=== PATIENT | female | born 1985 | race Caucasian/White ===

== ENCOUNTER 2017-10-11 00:39 | Emergency (ER) | payer MEDICAID ==
[~2017-10-11] VITALS: Ht 172.7 cm; Wt 88.5 kg
[2017-10-11 00:50] VITALS: BP 120/73
--- NOTE | 2017-10-11 01:00 | PHYS DOC ---
Past Medical History Past Medical History: Anxiety, Asthma, Bipolar Past Surgical History: , Tubal ligation Smoking: Cigarettes, 1 Pack Per Day Alcohol Use: None Drug Use: None Adult General Chief Complaint Chief Complaint: SHORTNESS OF BREATH HPI HPI Patient is a 32-year-old female who has a past history of asthma, and unfortunately Lizzette tobacco abuse, who presents to the emergency department for evaluation. She states for the past 2 days she has had a nonproductive cough , along with shortness of breath, and diffuse myalgias. She states that she had some soreness in her chest with coughing but otherwise denies any chest pain. She states she had a fever to 102 last night. She has not had any pleuritic pain , nausea, vomiting. There are no alleviating, or exacerbating factors to her symptoms. Review of Systems Review of Systems Constitutional: Denies chills [] Eyes: Denies change in visual acuity, redness, or eye pain [] HENT: Denies nasal congestion or sore throat [] Respiratory: Reports cough and shortness of breath [] Cardiovascular: The patient denies any chest pain (other than the chest discomfort associated with coughing), palpitations, or orthopnea[] GI: Denies abdominal pain, nausea, vomiting, bloody stools or diarrhea [] : Denies dysuria or hematuria [] Musculoskeletal: Denies back pain or joint pain. reports diffuse myalgias. [] Integument: Denies rash or skin lesions [] Neurologic: Denies headache, focal weakness or sensory changes [] Endocrine: Denies polyuria or polydipsia [] All other systems were reviewed and found to be within normal limits, except as documented in this note. Current Medications Current Medications Current Medications Medications (Trade) Dose Ordered Sig/Kurt Start Time Stop Time Status Last Admin Dose Admin Albuterol/ Ipratropium (Duoneb) 3 ml 1X ONCE 10/11/17 01:30 10/11/17 01:31 DC 10/11/17 01:44 3 ML Methylprednisolone Sodium Succinate (SOLU-Medrol 125MG VIAL) 125 mg 1X ONCE 10/11/17 01:30 10/11/17 01:31 DC Sodium Chloride 1,000 ml @ 1,000 mls/hr Q1H 10/11/17 01:30 10/11/17 02:29 DC Allergies Allergies Allergies Coded Allergies Type Severity Reaction Last Updated Verified No Known Drug Allergies 05/15/14 No Physical Exam Physical Exam PHYSICAL EXAM: CONSTITUTIONAL: Well developed, well nourished HEAD: normocephalic, atraumatic EENT: PERRL, EOMI. Conjunctivae normal color, sclerae non-icteric; moist mucous membranes. NECK: Supple, non-tender; no meningismus. LUNGS: There are globally diminished breath sounds, with diffusely scattered coarse expiratory and inspiratory wheezes in all lung olsen. There are no rales or rhonchi. HEART: Regular rate and rhythm, no murmur CHEST: No deformity; non-tender ABDOMEN: The abdomen is soft, and non-tender, no masses or bruits. EXTREM: Normal ROM; no deformity, no calf tenderness. Normal pulses palpable in all extremities. There is no pedal edema. SKIN: No rash; no diaphoresis NEURO: Alert; normal speech and cognition; CN's grossly intact; strength grossly intact without focal deficit. BACK: No CVA TTP. Current Patient Data Vital Signs Vital Signs Date Time Temp Pulse Resp B/P (MAP) Pulse Ox O2 Delivery O2 Flow Rate FiO2 10/11/17 01:43 99 Room Air 10/11/17 00:50 98.3 93 20 120/73 (89) 98.3 EKG EKG [Normal sinus rhythm with a normal rate, normal axis, normal intervals, there are no acute ischemic ST/T changes.] Radiology/Procedures Radiology/Procedures [ER physician preliminary chest x-ray interpretation: No acute disease.] Course & Med Decision Making Course & Med Decision Making The patient declined laboratory evaluation according to nursing staff. While I was busy caring for other patients, the patient signed out AGAINST MEDICAL ADVICE prior to completion of her visit. Dragon Disclaimer Dragon Disclaimer This electronic medical record was generated, in whole or in part, using a voice recognition dictation system. Departure Departure Impression: Primary Impression: Bronchitis Additional Impression: Asthma Disposition: 07 AGAINST MEDICAL ADVICE Condition: STABLE Referrals: NO PCP (PCP) Problem Qualifiers IVETH WELCH MD Oct 11, 2017 00:59
[2017-10-11] MEDS ORDERED: IV NORMAL SALINE 1000ML BAG 1,000 ML IV SCH (01:30)
[2017-10-11] MEDS ORDERED: methylPREDNISolone SOD SUCC PF 125 MG/2 ML VIAL. IV ONE (01:30)
[2017-10-11] MEDS ORDERED: IPRATRPIUM/ALBUTEROL 0.5/2.5MG 3 ML NEBU. NEB ONE ×2 (01:30)
--- NOTE | 2017-10-11 02:56 | RAD ---
CHEST PA LATERAL History: cough x 1 day Comparison: Two-view chest, July 11, 2017, [facility]. Findings: The cardiomediastinal silhouette is normal. Pulmonary vasculature is normal. Tiny calcified granuloma right lung base is stable. There is a curvilinear interface fat projects over the right heart border but there is no correlate on the lateral view. Finding may be a skin fold or external to the patient. The lungs are otherwise clear. No pleural effusion or pneumothorax is seen. There is no acute bone abnormality. IMPRESSION: No acute cardiopulmonary process. Electronically signed by: Melvin Mata MD (10/11/2017 2:53 AM) [facility]
--- NOTE | 2017-10-11 06:18 | EKG ---
[facility] [address] [place] [address] Test Date: 2017-10-11 Test Time: 01:33:22 Pat Name: KYLIE VILLAVICENCIO Department: Room: Gender: F Psychiatric Social Worker: : 1985 Requested By: IVETH WELCH Order Number: [id number] Reading MD: Sanju Garcia MD Measurements Intervals [place] Rate: 99 P: 59 WY: 142 QRS: 45 QRSD: 86 T: 31 QT: 352 QTc: 457 Interpretive Statements SINUS RHYTHM Electronically Signed On 10-15-2017 11:48:07 CDT by Sanju Garcia MD
== END 2017-10-11 02:30 | disposition left against medical advice (07) ==
LOC: ER 00:39
DX: J45.909 Unspecified asthma, uncomplicated (principal); F31.9 Bipolar disorder, unspecified; F17.210 Nicotine dependence, cigarettes, uncomplicated
CPT/HCPCS: 71046; 93005; 94640; 99284; J7620; 99285-25

== ENCOUNTER 2017-11-16 07:41 | Emergency (ER) | payer SELFPAY ==
[~2017-11-16] VITALS: Ht 172.7 cm; Wt 88.5 kg
[2017-11-16 07:49] VITALS: BP 145/87
[2017-11-16] MEDS ORDERED: IV NORMAL SALINE 1000ML BAG 1,000 ML IV SCH (08:06)
[2017-11-16] MEDS ORDERED: METOCLOPRAMIDE HCL 10 MG/2 ML VIAL. IV ONE (08:15)
[2017-11-16] MEDS ORDERED: ONDANSETRON PF 4 MG/2 ML VIAL. IV ONE (08:15)
[2017-11-16 08:29] LABS: BASO # 0.1 x10^3/uL (0.0-0.2); BASO % 1 % (0-3); EOS # 0.4 x10^3/uL (0.0-0.7); EOS % 3 % (0-3); HEMATOCRIT 40.5 % (36.0-47.0); LYMPH # 2.2 x10^3/uL (1.0-4.8); LYMPH % 19 % (24-48); MEAN CORPUSCULAR HEMOGLOBIN 33 pg (25-35); MEAN CORPUSCULAR HGB CONC 35 g/dL (31-37); MEAN CORPUSCULAR VOLUME 97 fL (79-100); MONO # 0.6 x10^3/uL (0.0-1.1); MONO % 5 % (0-9); NEUT # 8.4 x10^3uL (1.8-7.7); NEUT % 72 % (31-73); PLATELET COUNT 298 x10^3/uL (140-400); RED CELL DISTRIBUTION WIDTH 13.9 % (11.5-14.5); WHITE BLOOD COUNT 11.7 x10^3/uL (4.0-11.0)
[2017-11-16 08:30] LABS: BILIRUBIN,URINE SMALL (NEG); CLARITY,URINE CLEAR; COLOR,URINE YELLOW; NITRITE,URINE NEGATIVE (NEG); PH,URINE 5.5; PROTEIN,URINE NEGATIVE (NEG-TRACE)
[2017-11-16 08:35] LABS: CALCIUM 8.6 mg/dL (8.5-10.1); CREATININE 0.9 mg/dL (0.6-1.0); GFR 72.6; POTASSIUM 3.5 mmol/L (3.5-5.1)
[2017-11-16 08:38] LABS: SQUAMOUS EPITHELIAL CELL,UR MOD /LPF
[2017-11-16 08:39] LABS: BACTERIA,URINE FEW /HPF (0-FEW); BARBITURATES NEG (NEG); BENZODIAZEPINES NEG (NEG); CANNABINOIDS NEG (NEG); COCAINE NEG (NEG); METHADONE NEG (NEG); OPIATES NEG (NEG); PHENCYCLIDINE NEG (NEG); PROTHROMBIN TIME PATIENT 11.8 SEC (11.7-14.0); RBC,URINE 0 /HPF (0-2); WBC,URINE OCC /HPF (0-4)
[2017-11-16 08:40] LABS: ALBUMIN 3.4 g/dL (3.4-5.0); ALBUMIN/GLOBULIN RATIO 0.9 (1.0-1.7); TOTAL BILIRUBIN 0.2 mg/dL (0.2-1.0)
[2017-11-16 08:45] LABS: AMPHETAMINE/METHAMPHETAMINE NEG (NEG)
--- NOTE | 2017-11-16 08:56 | PHYS DOC ---
Past Medical History Past Medical History: Anxiety, Asthma, Bipolar Past Surgical History: , Tubal ligation Alcohol Use: None Drug Use: None Adult General Chief Complaint Chief Complaint: NAUSEA/VOMITING/DIARRHA HPI HPI Patient is a 32 year old female presented to ER today for evaluation of headache, nausea vomiting, diarrhea for the last two days. Patient said she tripped and fell down, hit her head on the ground 2 days ago. She denies any abdominal pain, no fever. She denies any blood in her diarrhea. Patient is homeless, denied suicidal ideation, denies homicidal ideation. Review of Systems Review of Systems Constitutional: Denies fever or chills [] Eyes: Denies change in visual acuity, redness, or eye pain [] HENT: Denies nasal congestion or sore throat [] Respiratory: Denies cough or shortness of breath [] Cardiovascular: No additional information not addressed in HPI [] GI: Denies abdominal pain, positive for nausea, vomiting , diarrhea [] : Denies dysuria or hematuria [] Musculoskeletal: Denies back pain or joint pain [] Integument: Denies rash or skin lesions [] Neurologic: Positive for headache, neck pain, facial pain Endocrine: Denies polyuria or polydipsia [] All other systems were reviewed and found to be within normal limits, except as documented in this note. Current Medications Current Medications Current Medications Medications (Trade) Dose Ordered Sig/Kurt Start Time Stop Time Status Last Admin Dose Admin Metoclopramide HCl (Reglan Vial) 10 mg 1X ONCE 11/16/17 08:15 11/16/17 08:16 DC 11/16/17 08:15 10 MG Ondansetron HCl (Zofran) 4 mg 1X ONCE 11/16/17 08:15 11/16/17 08:16 DC 11/16/17 08:15 4 MG Sodium Chloride 1,000 ml @ 1,000 mls/hr Q1H 11/16/17 08:06 11/16/17 09:05 DC 11/16/17 08:15 1,000 MLS/HR Allergies Allergies Allergies Coded Allergies Type Severity Reaction Last Updated Verified No Known Drug Allergies 05/15/14 No Physical Exam Physical Exam Constitutional: Well developed, well nourished, no acute distress, non-toxic appearance. [] HENT: Normocephalic, atraumatic, bilateral external ears normal, oropharynx moist, no oral exudates, nose normal. [] Eyes: PERRLA, EOMI, conjunctiva normal, no discharge. LEFT PERIORBITAL AREA SWELLING, BRUISE, TENDER TO PALPATION. Neck: Normal range of motion, no tenderness, supple, no stridor. [] Cardiovascular:Heart rate regular rhythm, no murmur [] Lungs & Thorax: Bilateral breath sounds clear to auscultation [] Abdomen: Bowel sounds normal, soft, no tenderness, no masses, no pulsatile masses. [] Skin: Warm, dry, no erythema, no rash. [] Back: No tenderness, no CVA tenderness. [] Extremities: No tenderness, no cyanosis, no clubbing, ROM intact, no edema. [] Neurologic: Alert and oriented X 3, normal motor function, normal sensory function, no focal deficits noted. [] Psychologic: Affect normal, judgement normal, mood normal. [] Current Patient Data Vital Signs Vital Signs Date Time Temp Pulse Resp B/P (MAP) Pulse Ox O2 Delivery O2 Flow Rate FiO2 11/16/17 07:49 98.7 63 145/87 (106) 98 Room Air 98.7 Lab Values Laboratory Tests Test 11/16/17 08:00 11/16/17 08:01 White Blood Count 11.7 x10^3/uL (4.0-11.0) H Red Blood Count 4.20 x10^6/uL (3.50-5.40) Hemoglobin 14.0 g/dL (12.0-15.5) Hematocrit 40.5 % (36.0-47.0) Mean Corpuscular Volume 97 fL (79-100) Mean Corpuscular Hemoglobin 33 pg (25-35) Mean Corpuscular Hemoglobin Concent 35 g/dL (31-37) Red Cell Distribution Width 13.9 % (11.5-14.5) Platelet Count 298 x10^3/uL (140-400) Neutrophils (%) (Auto) 72 % (31-73) Lymphocytes (%) (Auto) 19 % (24-48) L Monocytes (%) (Auto) 5 % (0-9) Eosinophils (%) (Auto) 3 % (0-3) Basophils (%) (Auto) 1 % (0-3) Neutrophils # (Auto) 8.4 x10^3uL (1.8-7.7) H Lymphocytes # (Auto) 2.2 x10^3/uL (1.0-4.8) Monocytes # (Auto) 0.6 x10^3/uL (0.0-1.1) Eosinophils # (Auto) 0.4 x10^3/uL (0.0-0.7) Basophils # (Auto) 0.1 x10^3/uL (0.0-0.2) Prothrombin Time 11.8 SEC (11.7-14.0) Prothrombin Time INR 0.9 (0.8-1.1) PTT 27 SEC (24-38) Urine Collection Type Unknown Urine Color Yellow Urine Clarity Clear Urine pH 5.5 Urine Specific [place] >=1.030 Urine Protein Negative mg/dL (NEG-TRACE) Urine Glucose (UA) Negative mg/dL (NEG) Urine Ketones (Stick) Negative mg/dL (NEG) Urine Blood Negative (NEG) Urine Nitrite Negative (NEG) Urine Bilirubin Small (NEG) Urine Urobilinogen Dipstick 1.0 mg/dL (0.2 mg/dL) Urine Leukocyte Esterase Negative (NEG) Urine RBC 0 /HPF (0-2) Urine WBC Occ /HPF (0-4) Urine Squamous Epithelial Cells Mod /LPF Urine Bacteria Few /HPF (0-FEW) Urine Mucus Marked /LPF Sodium Level 143 mmol/L (136-145) Potassium Level 3.5 mmol/L (3.5-5.1) Chloride Level 106 mmol/L (98-107) Carbon Dioxide Level 25 mmol/L (21-32) Anion Gap 12 (6-14) Blood Urea Nitrogen 10 mg/dL (7-20) Creatinine 0.9 mg/dL (0.6-1.0) Estimated GFR (Cockcroft-Gault) 72.6 BUN/Creatinine Ratio 11 (6-20) Glucose Level 106 mg/dL (70-99) H Calcium Level 8.6 mg/dL (8.5-10.1) Total Bilirubin 0.2 mg/dL (0.2-1.0) Aspartate Amino Transferase (AST) 15 U/L (15-37) Alanine Aminotransferase (ALT) 12 U/L (14-59) L Alkaline Phosphatase 61 U/L (46-116) Total Protein 7.0 g/dL (6.4-8.2) Albumin 3.4 g/dL (3.4-5.0) Albumin/Globulin Ratio 0.9 (1.0-1.7) L Lipase 137 U/L (73-393) Urine Opiates Screen Neg (NEG) Urine Methadone Screen Neg (NEG) Urine Barbiturates Neg (NEG) Urine Phencyclidine Screen Neg (NEG) Urine Amphetamine/Methamphetamine Neg (NEG) Urine Benzodiazepines Screen Neg (NEG) Urine Cocaine Screen Neg (NEG) Urine Cannabinoids Screen Neg (NEG) Urine Ethyl Alcohol Neg (NEG) POC Urine HCG, Qualitative Hcg negative (Negative) Laboratory Tests 11/16/17 08:00 Laboratory Tests 11/16/17 08:00 EKG EKG [] Radiology/Procedures Radiology/Procedures [][facility] [address] [place] [address] IMAGING REPORT Signed PATIENT: KYLIE VILLAVICENCIO ACCOUNT: [id number] : 1985 LOCATION: ER AGE: 32 SEX: F EXAM STATUS: PRE ER ORD. PHYSICIAN: ARIANNA MULLER DO REASON: fell, neck pain PROCEDURE: CT CERVICAL SPINE WO CONTRAST EXAM: 1. CT HEAD WITHOUT CONTRAST. 2. CT FACIAL BONES WITHOUT CONTRAST. HISTORY: Fall with head and facial trauma. Headache, nausea/vomiting. TECHNIQUE: Computed tomography of the head and facial bones was performed without intravenous contrast. COMPARISON: None. FINDINGS: There is no intracranial hemorrhage. Arnold-white differentiation is preserved. The ventricles are normal in size and position. The temporal bones are unremarkable. The calvarium reveals no suspicious lesions. No facial fractures are identified. There are a few small foci of soft tissue gas within the left temporalis muscle. This may be venous. No deep laceration or sinus fracture is identified to suggest cause for soft tissue emphysema. There is soft tissue swelling about the left eyelids and cheeks. No post septal hemorrhage is identified. The visualized paranasal sinuses appear clear. The frontal sinus is hypoplastic/absent. The right orbit is unremarkable. IMPRESSION: 1. No acute intracranial findings. 2. Soft tissue swelling about the left orbit and cheek. A small amount of soft tissue gas within the left temporalis muscle may be venous. No clear facial fracture or penetrating injury. *One or more of the following individualized dose reduction techniques were utilized for this examination: 1. Automated exposure control. 2. Adjustment of the mA and/or kV according to patient size. 3. Use of iterative reconstruction technique. Electronically signed by: Sofia Faye MD (11/16/2017 9:02 AM) [facility] DICTATED and SIGNED BY: JESUS ALBERTO FAYE MD DATE: 11/16/17 0855 Course & Med Decision Making Course & Med Decision Making Pertinent Labs and Imaging studies reviewed. (See chart for details) [] Dragon Disclaimer Dragon Disclaimer This electronic medical record was generated, in whole or in part, using a voice recognition dictation system. Departure Departure Impression: Primary Impression: Gastroenteritis Additional Impression: Facial contusion Disposition: 01 HOME, SELF-CARE Condition: STABLE Referrals: NO PCP (PCP) FOLLOW UP WITH PCP NEXT WEEK Patient Instructions: Facial or Scalp Contusion, Viral Gastroenteritis Scripts Ondansetron Hcl (ZOFRAN) 4 Mg Tablet 1 TAB PO Q6HRS PRN for NAUSEA, #20 TAB Prov: ARIANNA MULLER DO 11/16/17 Problem Qualifiers ARIANNA MULLER DO Nov 16, 2017 08:56
--- NOTE | 2017-11-16 09:05 | RAD ---
EXAM: 1. CT HEAD WITHOUT CONTRAST. 2. CT FACIAL BONES WITHOUT CONTRAST. HISTORY: Fall with head and facial trauma. Headache, nausea/vomiting. TECHNIQUE: Computed tomography of the head and facial bones was performed without intravenous contrast. COMPARISON: None. FINDINGS: There is no intracranial hemorrhage. Arnold-white differentiation is preserved. The ventricles are normal in size and position. The temporal bones are unremarkable. The calvarium reveals no suspicious lesions. No facial fractures are identified. There are a few small foci of soft tissue gas within the left temporalis muscle. This may be venous. No deep laceration or sinus fracture is identified to suggest cause for soft tissue emphysema. There is soft tissue swelling about the left eyelids and cheeks. No post septal hemorrhage is identified. The visualized paranasal sinuses appear clear. The frontal sinus is hypoplastic/absent. The right orbit is unremarkable. IMPRESSION: 1. No acute intracranial findings. 2. Soft tissue swelling about the left orbit and cheek. A small amount of soft tissue gas within the left temporalis muscle may be venous. No clear facial fracture or penetrating injury. *One or more of the following individualized dose reduction techniques were utilized for this examination: 1. Automated exposure control. 2. Adjustment of the mA and/or kV according to patient size. 3. Use of iterative reconstruction technique. Electronically signed by: Sofia Faye MD (11/16/2017 9:02 AM) [facility]
[2017-11-16] MEDS ORDERED: ONDA4TAB7 PO (10:55)
== END 2017-11-16 11:33 | disposition home or self-care (01) ==
LOC: ER 07:41
DX: S05.12XA Contusion of eyeball and orbital tissues, left eye, initial encounter (principal); K52.9 Noninfective gastroenteritis and colitis, unspecified; R11.2 Nausea with vomiting, unspecified; F41.9 Anxiety disorder, unspecified; J45.909 Unspecified asthma, uncomplicated; F31.9 Bipolar disorder, unspecified; Z98.890 Other specified postprocedural states; Z98.51 Tubal ligation status; W01.0XXA Fall on same level from slipping, tripping and stumbling without subsequent striking against object, initial encounter; Y93.89 Activity, other specified; Y92.89 Other specified places as the place of occurrence of the external cause; Y99.8 Other external cause status
CPT/HCPCS: 36415; 70450; 70486; 72125; 80053; 80307; 81001; 81025; 83690; 85025; 85610; 85730; 96361; 96374; 96375; 99285; J2405; J2765; J7030; G0479

== ENCOUNTER 2018-05-06 01:27 | Emergency (ER) | payer SELFPAY ==
[~2018-05-06] VITALS: Ht 172.7 cm; Wt 90.7 kg
[~2018-05-06 01:27] MED LIST: ONDA4TAB7 PO
[2018-05-06] MEDS ORDERED: KETOROLAC 15 MG/ML VIAL. IV ONE (01:45)
[2018-05-06] MEDS ORDERED: CYCLOBENZAPRINE 10 MG TABLET. PO ONE (01:45)
--- NOTE | 2018-05-06 01:48 | PHYS DOC ---
Past Medical History Past Medical History: Anxiety, Asthma, Bipolar Past Surgical History: , Tubal ligation Alcohol Use: None Drug Use: None Adult General HPI HPI Patient is a 33 year old female who presents with left-sided back pain along her ribs. Patient tripped and fell on a branch yesterday morning. She was seen at twice. Had imaging performed there. Was unable to afford the narcotic pain medicines prescribed by and so presents to [facility] for pain management. Patient reports it hurts more when she takes a deep breath. Denies any cough. Denies any nausea or vomiting. No relief with ibuprofen.[] Review of Systems Review of Systems Constitutional: Denies fever or chills [] Eyes: Denies change in visual acuity, redness, or eye pain [] HENT: Denies nasal congestion or sore throat [] Respiratory: Denies cough or shortness of breath [] Cardiovascular: No additional information not addressed in HPI [] GI: Denies abdominal pain, nausea, vomiting, bloody stools or diarrhea [] : Denies dysuria or hematuria [] Musculoskeletal: See history of present illness[] Integument: Denies rash or skin lesions [] Neurologic: Denies headache, focal weakness or sensory changes [] Endocrine: Denies polyuria or polydipsia [] All other systems were reviewed and found to be within normal limits, except as documented in this note. Current Medications Current Medications Current Medications Medications (Trade) Dose Ordered Sig/Kurt Start Time Stop Time Status Last Admin Dose Admin Cyclobenzaprine HCl (Flexeril) 10 mg 1X ONCE 05/06/18 01:45 05/06/18 01:46 DC 05/06/18 02:16 10 MG Ketorolac Tromethamine (Toradol 15mg Vial) 15 mg 1X ONCE 05/06/18 01:45 05/06/18 01:46 DC 05/06/18 02:18 15 MG Allergies Allergies Allergies Coded Allergies Type Severity Reaction Last Updated Verified No Known Drug Allergies 05/15/14 No Physical Exam Physical Exam Constitutional: Well developed, well nourished, mild distress, non-toxic appearance. [] HENT: Normocephalic, atraumatic, bilateral external ears normal, oropharynx moist, no oral exudates, nose normal. [] Eyes: PERRLA, EOMI, conjunctiva normal, no discharge. [] Neck: Normal range of motion, no tenderness, supple, no stridor. [] Cardiovascular:Heart rate regular rhythm, no murmur [] Lungs & Thorax: Bilateral breath sounds clear to auscultation, tenderness in the mid back along the left posterior axillary line. There is no bruising present. No crepitus. No subcutaneous emphysema [] Abdomen: Bowel sounds normal, soft, no tenderness, no masses, no pulsatile masses. [] Skin: Warm, dry, no erythema, no rash. [] Back: No tenderness, no CVA tenderness. [] Extremities: No tenderness, no cyanosis, no clubbing, ROM intact, no edema. [] Neurologic: Alert and oriented X 3, normal motor function, normal sensory function, no focal deficits noted. [] Psychologic: Affect normal, judgement normal, mood normal. [] Current Patient Data Vital Signs Vital Signs Date Time Temp Pulse Resp B/P (MAP) Pulse Ox O2 Delivery O2 Flow Rate FiO2 05/06/18 01:35 97.6 111 28 142/115 (124) 100 Room Air 97.6 Lab Values Laboratory Tests Test 05/06/18 02:06 05/06/18 02:08 Urine Collection Type Unknown Urine Color Yellow Urine Clarity Cloudy Urine pH 5.5 Urine Specific [place] >=1.030 Urine Protein Negative mg/dL (NEG-TRACE) Urine Glucose (UA) Negative mg/dL (NEG) Urine Ketones (Stick) 15 mg/dL (NEG) Urine Blood Negative (NEG) Urine Nitrite Negative (NEG) Urine Bilirubin Small (NEG) Urine Urobilinogen Dipstick 1.0 mg/dL (0.2 mg/dL) Urine Leukocyte Esterase Negative (NEG) Urine RBC Occ /HPF (0-2) Urine WBC 1-4 /HPF (0-4) Urine Squamous Epithelial Cells Many /LPF Urine Bacteria Few /HPF (0-FEW) Urine Mucus Marked /LPF POC Urine HCG, Qualitative Hcg negative (Negative) EKG EKG [] Radiology/Procedures Radiology/Procedures RIBS and chest x-ray show no infiltrate, no effusion, no pneumothorax, no overt rib fracture identified[] Course & Med Decision Making Course & Med Decision Making Pertinent Labs and Imaging studies reviewed. (See chart for details) ED course: Patient arrived, was transferred from the EMS cot 2R bed without any complication. She tolerated the exam well. She was transported to and from radiology without any complications. After the return of the imaging findings, these were discussed with the patient who voiced understanding. Patient was discharged in improved condition. Medical decision making: There is no evidence of pneumothorax, hemothorax, significant rib injury. Doubt cardiac etiology.[] Dragon Disclaimer Dragon Disclaimer This electronic medical record was generated, in whole or in part, using a voice recognition dictation system. Departure Departure Impression: Primary Impression: Contusion of rib on left side Disposition: HOME, SELF-CARE Condition: IMPROVED Referrals: NO PCP (PCP) Patient Instructions: Rib Contusion Additional Instructions: Follow-up with your regular doctor in 2 days. If you do not have a regular doctor a list of local clinics will be provided. Take medication as prescribed. Return to the ER if worsening difficulty breathing or any other concerns. Scripts Cyclobenzaprine Hcl (CYCLOBENZAPRINE HCL) 5 Mg Tablet 5 MG PO PRN TID PRN for PAIN, #15 TAB Prov: MEGAN BAEZ DO 05/06/18 Meloxicam (MELOXICAM) 7.5 Mg Tablet 7.5 MG PO DAILY, #20 TAB Prov: MEGAN BAEZ DO 05/06/18 Problem Qualifiers Primary Impression: Contusion of rib on left side Encounter type: initial encounter Qualified Codes: S20.212A - Contusion of left front wall of thorax, initial encounter MEGAN BAEZ DO May 06, 2018 01:48
[2018-05-06 02:14] LABS: BILIRUBIN,URINE SMALL (NEG); CLARITY,URINE CLOUDY; COLOR,URINE YELLOW; NITRITE,URINE NEGATIVE (NEG); PH,URINE 5.5; PROTEIN,URINE NEGATIVE (NEG-TRACE)
[2018-05-06 02:21] LABS: BACTERIA,URINE FEW /HPF (0-FEW); RBC,URINE OCC /HPF (0-2); SQUAMOUS EPITHELIAL CELL,UR MANY /LPF
[2018-05-06] MEDS ORDERED: CYCL5TAB PO (02:36)
[2018-05-06] MEDS ORDERED: MELO7.5T29 PO (02:36)
[2018-05-06 02:45] VITALS: BP 131/73
--- NOTE | 2018-05-06 04:19 | RAD ---
Left rib series to include a PA chest radiograph 05/06/2018 CLINICAL HISTORY: Left-sided chest pain post fall. A PA digital radiograph of the chest was obtained. AP and oblique digital radiographs left ribs were obtained. Comparison study is dated 10/11/2017. The cardiac and mediastinal silhouettes are within normal limits in size and configuration. No acute pulmonary infiltrate is seen. No pleural effusion or pneumothorax is noted. The osseous structures are grossly intact. Specifically no left-sided rib fracture is seen. IMPRESSION: No left-sided rib fracture is seen. Electronically signed by: Carlos A Blanchard MD (05/06/2018 4:16 AM) [facility]
== END 2018-05-06 03:50 | disposition home or self-care (01) ==
LOC: ER 01:27
DX: S20.212A Contusion of left front wall of thorax, initial encounter (principal); F41.9 Anxiety disorder, unspecified; J45.909 Unspecified asthma, uncomplicated; F31.9 Bipolar disorder, unspecified; Z98.890 Other specified postprocedural states; Z98.51 Tubal ligation status; W01.0XXA Fall on same level from slipping, tripping and stumbling without subsequent striking against object, initial encounter; Y93.89 Activity, other specified; Y92.89 Other specified places as the place of occurrence of the external cause; Y99.8 Other external cause status
CPT/HCPCS: 71101; 81001; 81025; 96374; 99284; J1885